=== PATIENT | female | born 1965 | race African-American/Black ===

== ENCOUNTER → 2019-07-20 19:31 | Outpatient (CLI) | payer OTHER, SELFPAY ==
--- NOTE | 2019-07-20 19:36 | DI.MRI.S_ITS ---
PROCEDURE: MR KNEE LT WO CON INDICATIONS: STRAIN OF UNSPECIFIED MUSCLE(S) AND TENDON(S) AT I TECHNIQUE: Noncontrast sagittal PD fast spin echo and T2 fast spin echo with fat saturation, sagittal 3-D FLASH with fat saturation; coronal T1 spin echo and PD fast spin echo with fat saturation, and axial PD fast spin echo with fat saturation through the knee. COMPARISON: [facility], CR, FOOT 3V LEFT, 08/10/2014, 14:55. [facility], CR, XR KNEE 3 VIEWS LEFT, 06/24/2019, 11:24. [facility], MR, KNEE WITHOUT CONTRAST, 06/22/2013, 7:11. FINDINGS: Image quality: Excellent. Menisci: There are artifacts involving the free edge of the body of the medial meniscus, presumably secondary to postsurgical change. The lateral meniscus demonstrates normal morphology and internal signal. The meniscal root ligaments appear intact. Cruciate ligaments: Patient is status post anterior cruciate ligament repair. The ACL tendon graft appears somewhat irregular with heterogeneous signal, suggesting partial graft tear. No posterior bowing of the graft to suggest roof impingement. Femoral and tibial tunnels are in expected positions, without widening or tunnel cysts. The posterior cruciate ligament appears intact. Medial structures: The medial collateral ligament appears intact. The posterior oblique ligament, semimembranosus tendon insertions, oblique popliteal ligament, and meniscocapsular junction appear intact. Visualized portions of the pes anserinus tendons appear intact. No abnormal bursal fluid. Lateral structures: The lateral collateral ligament, long and short heads of the biceps femoris tendon appear intact. The popliteus tendon appears normal; the popliteofibular ligament appears intact. The posterosuperior and anteroinferior popliteomeniscal fascicles appear intact. The arcuate and fabellofibular ligaments appear intact, on either side of the lateral inferior geniculate artery. Iliotibial band appears normal, without findings to suggest friction syndrome. Anterior structures: The quadriceps and patellar tendons appear intact. Patellar alignment is normal. No femoral trochlear dysplasia or ventral trochlear prominence. No edema in the infrapatellar fat pad. No localized arthrofibrosis (cyclops lesion) in the anterior intercondylar notch. Bones and cartilage: Sagittal images demonstrate no abnormal anterior tibial translation. No bone marrow contusions or fractures. Mild tricompartmental cartilage thinning and fibrillation. Joint space: There is small knee joint fluid. A tiny Robles's cyst. No intra-articular bodies. Normal appearing synovial plicae are incidentally noted. IMPRESSION: 1. Anterior cruciate ligament repair. The ACL tendon graft appears somewhat irregular with heterogeneous signal, suggesting partial graft tear. 2. Mild tricompartmental cartilage thinning and fibrillation. 3. Small knee joint effusion. 4. A tiny Robles's cyst. Dictated by: Vero Campuzano M.D. on 07/21/2019 at 9:11 Approved by: Vero Campuzano M.D. on 07/21/2019 at 9:21
== END ==
PROVIDERS: Visit Provider Orthopaedic Surgery
DX: S86.912D Strain of unspecified muscle(s) and tendon(s) at lower leg level, left leg, subsequent encounter (principal); M25.462 Effusion, left knee
CPT/HCPCS: 73721

== ENCOUNTER 2019-10-10 11:27 | Emergency (ER) | payer OTHER, SELFPAY ==
[2019-10-10 11:30] VITALS: BP 163/116; PULSE 94; RESP 14; TEMP 36.9; O2SAT 99
--- NOTE | 2019-10-10 11:37 | ED_ITS ---
HPI - URI/Sore Throat <RAFAELA Osorio-BC - Last Filed: 10/10/19 12:45> General Chief Complaint: Upper Respiratory Symptoms Stated Complaint: Severe sore throat strep where she works Time Seen by Provider: 10/10/19 11:30 Source: patient Mode of arrival: Ambulatory Limitations: no limitations History of Present Illness HPI Narrative: The patient is a 54-year-old female nonsmoker with history of hypertension who presents with a chief complaint of sore throat x1 day. She states that multiple coworkers have been diagnosed with strep throat. Yesterday she felt ?a tickle in the throat and then today woke up with sore throat. She has not taken anything to feel better. She denies any fevers nausea vomiting or diarrhea. She denies any ear pain, states that it feels like her entire throat is very itchy and scratchy. Of note the patient does have a history of hypertension, has not taken her antihypertensive meds this morning Related Data Allergies Allergy/AdvReac Type Severity Reaction Status Date / Time morphine [MORPHINE] Allergy Mild Hives Verified 10/10/19 11:36 tramadol [TRAMADOL] AdvReac Severe FACIAL Verified 10/10/19 11:36 NUMBNESS lisinopril AdvReac Intermediate Cough Verified 10/10/19 11:39 hydrocodone [HYDROCODONE] AdvReac Mild Nausea/vomi Verified 10/10/19 11:36 ting ibuprofen [IBUPROFEN] AdvReac Mild Nausea/vomi Verified 10/10/19 11:36 ting meperidine [MEPERIDINE] AdvReac Mild Nausea/vomi Verified 10/10/19 11:36 ting naproxen [NAPROXEN] AdvReac Mild Kidneys Verified 10/10/19 11:36 Review of Systems <RAFAELA Osorio-BC - Last Filed: 10/10/19 12:45> Review of Systems Narrative: GENERAL: Denies chills, fatigue, malaise, fever, sweats. HEENT: See HPI RESPIRATORY: Denies dyspnea, cough, wheezing, hemoptysis, sputum. CARDIOVASCULAR: Denies chest pain, palpitations, orthopnea, edema, GASTROINTESTINAL: Denies nausea, vomiting, abdominal pain, diarrhea, constipation, melena. : Denies dysuria, frequency, incontinence, hematuria, urinary retention. MUSCULOSKELETAL: denies weakness, joint pain, or bony pain SKIN: Denies rash, skin lesions, or other NEUROLOGIC: Denies weakness, headache, numbness, change in speech, confusion, se izures, incoordination. PSYCHIATRIC: No concerning psychosocial issues. 12 point review of systems is negative except for those stated above Patient History <MARGARET Osorio - Last Filed: 10/10/19 12:45> Medical History (Updated 10/10/19 @ 12:20 by MARGARET Osorio) Hypertension (Acute) Surgical History Status post dilation and curettage Social History Smoking Status: Never smoker Smoking Status: Never smoker alcohol intake frequency: 0-2 drinks per day Substance Use Type: does not use Exam <MARGARET Osorio - Last Filed: 10/10/19 12:45> Narrative Exam Narrative: GENERAL: This is a well-nourished, well-developed patient, no acute distress HEAD: Atraumatic. Normocephalic. No temporal or scalp tenderness. EYES: Pupils equal round and reactive. Extraocular motions intact. No scleral icterus. No injection or drainage. ENT: Nose without bleeding, purulent drainage or septal hematoma. Throat with slight erythema but no tonsillar hypertrophy or exudate. Uvula midline. Airway patent. Bilateral TMs pearly nino. NECK: Trachea midline. No JVD or lymphadenopathy. Supple, nontender, no meningeal signs. CARDIOVASCULAR: Regular rate and rhythm without murmurs, gallops, or rubs. RESPIRATORY: Clear to auscultation. Breath sounds equal bilaterally. No wheezes, rales, or rhonchi. No cough. No increased respiratory effort. No accessory muscle use. GASTROINTESTINAL: Abdomen soft, non-tender, nondistended. No hepato- splenomegaly, or palpable masses. No guarding. EXTREMITIES: No clubbing, cyanosis, or edema. No joint tenderness, effusion, or edema noted. BACK: Nontender without deformity or crepitance. No flank tenderness. NEURO: AOx3. SKIN: No rash or erythema. Initial Vital Signs Initial Vital Signs: Vital Signs Temperature 98.5 F 10/10/19 11:30 Pulse Rate 94 H 10/10/19 11:30 Respiratory Rate 14 10/10/19 11:30 Blood Pressure 163/116 H 10/10/19 11:30 Pulse Oximetry 99 10/10/19 11:30 <Levon Aguilar DO - Last Filed: 10/10/19 12:48> Initial Vital Signs Initial Vital Signs: Vital Signs Temperature 98.5 F 10/10/19 11:30 Pulse Rate 94 H 10/10/19 11:30 Respiratory Rate 14 10/10/19 11:30 Blood Pressure 163/116 H 10/10/19 11:30 Pulse Oximetry 99 10/10/19 11:30 Course <MARGARET Osorio - Last Filed: 10/10/19 12:45> Orders Ordered: ED Orders 10/10/19 11:56 Strep Grp A by PCR Rapid Stat 10/10/19 12:19 Throat Culture Stat Vital Signs Vital signs: Vital Signs - 8 hr 10/10/19 11:30 10/10/19 12:00 Temperature 98.5 F Pulse Rate 94 H 65 Respiratory Rate 14 14 Blood Pressure 163/116 H Blood Pressure [Left Arm] 143/82 H Pulse Oximetry 99 <Levon Aguilar DO - Last Filed: 10/10/19 12:48> Orders Ordered: ED Orders 10/10/19 11:56 Strep Grp A by PCR Rapid Stat 10/10/19 12:19 Throat Culture Stat Vital Signs Vital signs: Vital Signs - 8 hr 10/10/19 11:30 10/10/19 12:00 Temperature 98.5 F Pulse Rate 94 H 65 Respiratory Rate 14 14 Blood Pressure 163/116 H Blood Pressure [Left Arm] 143/82 H Pulse Oximetry 99 MDM - URI/Sore Throat <MARGARET Osorio - Last Filed: 10/10/19 12:45> Lab Data Labs: Lab Results 10/10/19 Range/Units 11:56 Group A Strep (PCR) Negative MDM Narrative Medical decision making narrative: The patient is a 54-year-old female who presents with a chief complaint of sore throat x1 day. She has no signs of systemic illness. She is concerned about strep as she thinks she might have been exposed at work. She tested negative for strep. Throat culture is pending at this time. Discussed conservative measures and comfort measures pending throat culture results discussed coming back to the ER for any acute concerns such as inability keep down fluids, chest pain, shortness of breath etc. Encouraged Tylenol Motrin [id number] medications as needed and able. Encourage PCP follow-up. Patient has no questions or concerns upon discharge and states understanding return precautions and follow-up care. <Levon Aguilar DO - Last Filed: 10/10/19 12:48> Lab Data Labs: Lab Results 10/10/19 Range/Units 11:56 Group A Strep (PCR) Negative Discharge Plan Departure Patient Disposition: Home Clinical Impression: Acute sore throat Discharge Date/Time: 10/10/19 12:27 Instructions: Sore Throat, DI for Viral Pharyngitis Activity Restrictions/Additional Instructions: Today your strep test came back negative We have sent off a throat culture. If there is any evidence of bacterial infection on this we will call you with the results come in in 2-3 days Please use [id number] measures as needed and able such as Tylenol, Motrin Cepacol lozenges etcetera Please follow-up with primary care provider Please come back to the emergency department for any acute concerns. Stand Alone Forms: Work Release Note <DO Chris Marks Last Filed: 10/10/19 12:48> Sign Out Provider Sign Out Attestation: Dr Aguilar Co-Sign Statement: I was available for consultation during this patient's emergency department visit. This chart is signed by myself for administrative purposes only. I did not have direct contact with this patient during this visit. They were seen independently by the APC.
[2019-10-10 12:00] VITALS: BP 143/82; PULSE 65; RESP 14
[2019-10-10 12:09] LABS: Strep Grp A by PCR Rapid Negative
== END 2019-10-10 12:27 | disposition home or self-care (01) ==
PROVIDERS: Emergency Provider Nurse Practitioner Family
DX: J02.9 Acute pharyngitis, unspecified (principal)
CPT/HCPCS: 87070; 87077; 87147; 87186; 87651; 99281; 99283